=== PATIENT | male | born 1950 | race Caucasian/White ===

== ENCOUNTER → 2018-01-15 | Outpatient (CLI) | payer MEDICARE, BC | END | disposition home or self-care (01) | LOC: CDC 11:15 | DX: Z01.810 Encounter for preprocedural cardiovascular examination (principal); K40.90 Unilateral inguinal hernia, without obstruction or gangrene, not specified as recurrent | CPT/HCPCS: 93000 ==

== ENCOUNTER 2018-01-28 05:26 | Day surgery (SDC) | payer OTHER, BC ==
[~2018-01-28] VITALS: Ht 167.6 cm; Wt 72.6 kg
[~2018-01-28 05:26] MED LIST: ADULT ASPIRIN81 MG PO; AMLODIPINE BESYL5 MG PO; ATORVASTATIN CA10 MG PO; GLUCOSAMINE-CH1 EA44 PO; HYDROCHLOROTHIA25 MG PO; LISINOPRIL20 MG PO; MEN'S MULTI-VI1 EACH PO; OMEGA 3-6-9 CO400 MG PO; PRILOSEC20 MG PO
[2018-01-28 06:15] VITALS: BP 179/90
[2018-01-28 12:20] VITALS: BP 147/75
[2018-01-28 15:32] VITALS: BP 126/67
[2018-01-28] MEDS ORDERED: COLACE100 MG PO (17:37)
[2018-01-28] MEDS ORDERED: DILAUDID4 MG PO (17:37)
[2018-01-28] MEDS ORDERED: ONDANSETRON HCL8 MG PO (17:37)
[2018-01-28 19:31] VITALS: BP 138/84
[2018-01-28 23:29] VITALS: BP 126/69
[2018-01-29 04:05] VITALS: BP 148/80
[2018-01-29 06:14] LABS: HEMATOCRIT 42.7 % (38.0-50.0); HEMOGLOBIN 14.6 G/DL (12.5-16.6); MCH 30.5 PG (29.0-34.0); MCHC 34.2 G/DL (30.0-36.0); MCV 89.1 FL (86-99); PLATELET COUNT 244 K/uL (156-360); RBC DIS.WIDTH-CV 12.4 % (11.8-14.6); RBC DIS.WIDTH-SD 40.7 % (39-53); RED BLOOD COUNT 4.79 M/uL (4.00-5.50); WHITE BLOOD COUNT 11.9 K/uL (4.1-10.2)
[2018-01-29 06:35] LABS: CHLORIDE 105 MEQ/L (99-109); CREATININE 0.9 MG/DL (0.6-1.3); GFR ESTIMATE (CALCULATED) > 59 mL/min/ (58.99-99999); GLUCOSE 117 mg/dL (70-99); POTASSIUM 3.7 MEQ/L (3.7-5.4); SODIUM 139 MEQ/L (136-147); UREA NITROGEN (BUN) 10 mg/dL (9-23)
[2018-01-29 08:20] VITALS: BP 161/94
[2018-01-29] MEDS ORDERED: FLOMAX0.4 MG PO (09:05)
[2018-01-29 11:42] VITALS: BP 155/82
== END 2018-01-29 16:05 | disposition home or self-care (01) ==
LOC: SDC 05:26 → 2SOUTH 11:18 → 2EAST 11:18 → 2SOUTH 11:18 → ENRESERV 11:19 → 2EAST 12:02 → SDC 12:35 → 2EAST 01-29 16:05
PROVIDERS: Surgery
PROC: 0HBKXZZ Excision of Right Lower Leg Skin, External Approach (ICD-10-PCS; principal; 2018-01-28)
PROC: 0HBHXZZ Excision of Right Upper Leg Skin, External Approach (ICD-10-PCS; principal; 2018-01-28)
PROC: 0YUA4JZ Supplement Bilateral Inguinal Region with Synthetic Substitute, Percutaneous Endoscopic Approach (ICD-10-PCS; principal; 2018-01-28)
DX: K40.20 Bilateral inguinal hernia, without obstruction or gangrene, not specified as recurrent (principal); D04.71 Carcinoma in situ of skin of right lower limb, including hip; L90.5 Scar conditions and fibrosis of skin; K21.9 Gastro-esophageal reflux disease without esophagitis; E78.5 Hyperlipidemia, unspecified; I10 Essential (primary) hypertension; Z79.82 Long term (current) use of aspirin; Z88.0 Allergy status to penicillin; Z87.891 Personal history of nicotine dependence
CPT/HCPCS: 80048; 85027; 88304; 88305; C1781; G0378; J0330; J1100; J1170; J1885; J2405; J2710; J2795; J3370; J7643; Q0175

== ENCOUNTER 2018-01-31 16:42 | Emergency (ER) | payer OTHER, BC ==
[~2018-01-31] VITALS: Ht 167.6 cm; Wt 75.7 kg
[~2018-01-31 16:42] MED LIST changes: +COLACE100 MG PO; +DILAUDID4 MG PO; +FLOMAX0.4 MG PO; +ONDANSETRON HCL8 MG PO
[2018-01-31 18:54] LABS: APPEARANCE CLEAR ((CLEAR)); BILIRUBIN NEGATIVE; BLOOD LARGE; COLOR YELLOW ((YELLOW)); GLUCOSE (STRIP) NEGATIVE; KETONES NEGATIVE; LEUKOCYTES NEGATIVE; NITRITE NEGATIVE; PROTEIN (STRIP) 30; SPECIFIC GRAVITY 1.005 (1.000-1.030); UROBILINOGEN 0.2 MG/DL (0.2-1.0)
[2018-01-31 18:58] LABS: BACTERIA RARE /HPF; EPITHELIAL CELLS NONE SEEN /HPF; MUCUS NONE SEEN /LPF; RED BLOOD CELLS 0-5 /HPF (0-5); UCUL ADDED? NO; WHITE BLOOD CELLS 0-5 /HPF (0-5)
[2018-01-31 19:50] LABS: HEMATOCRIT 40.3 % (38.0-50.0); HEMOGLOBIN 14.2 G/DL (12.5-16.6); MCH 31.1 PG (29.0-34.0); MCHC 35.2 G/DL (30.0-36.0); MCV 88.4 FL (86-99); PLATELET COUNT 222 K/uL (156-360); RBC DIS.WIDTH-CV 12.1 % (11.8-14.6); RBC DIS.WIDTH-SD 39.6 % (39-53); RED BLOOD COUNT 4.56 M/uL (4.00-5.50); WHITE BLOOD COUNT 6.9 K/uL (4.1-10.2)
[2018-01-31 19:55] VITALS: BP 131/85
[2018-01-31 20:00] LABS: CHLORIDE 102 mEq/L (99-109); POTASSIUM 3.8 mEq/L (3.7-5.4); SODIUM 138 mEq/L (136-147)
[2018-01-31 20:01] LABS: GLUCOSE 110 mg/dL (70-99)
[2018-01-31 20:05] LABS: CREATININE 1.1 mg/dL (0.6-1.3); GFR ESTIMATE (CALCULATED) > 59 mL/min/ (58.99-99999)
[2018-01-31 20:06] LABS: UREA NITROGEN (BUN) 14 mg/dL (9-23)
== END 2018-01-31 20:13 | disposition home or self-care (01) ==
LOC: EME 16:42
PROVIDERS: Emergency Medicine
DX: R31.9 Hematuria, unspecified (principal); N50.89 Other specified disorders of the male genital organs; Z98.890 Other specified postprocedural states; Z87.891 Personal history of nicotine dependence; Z79.82 Long term (current) use of aspirin; Z88.0 Allergy status to penicillin
CPT/HCPCS: 80048; 81003; 85027; 99281; 99284